=== PATIENT | female | born 1955 | race Caucasian/White ===

== ENCOUNTER 2016-10-14 14:05 | Emergency (ER) | payer BC ==
[~2016-10-14] VITALS: Ht 167.6 cm; Wt 74.9 kg
[~2016-10-14 14:05] MED LIST: CELEXA20 MG PO; CIPRO500 MG PO; MECLIZINE HCL25 MG PO; PANTOPRAZOLE SO40 MG PO; PYRIDIUM100 MG PO; TYLENOL REGULA325 MG PO
[2016-10-14] MEDS ORDERED: PERCOCET 5/31 TABLET PO (16:21)
[2016-10-14] MEDS ORDERED: MOTRIN800 MG PO (16:25)
[2016-10-14 16:47] VITALS: BP 129/78
== END 2016-10-14 16:48 | disposition home or self-care (01) ==
LOC: EME 14:05
PROC: 2W39X1Z Immobilization of Left Upper Extremity using Splint (ICD-10-PCS; principal; 2016-10-14)
DX: S52.022A Displaced fracture of olecranon process without intraarticular extension of left ulna, initial encounter for closed fracture (principal); W10.8XXA Fall (on) (from) other stairs and steps, initial encounter; Y92.008 Other place in unspecified non-institutional (private) residence as the place of occurrence of the external cause; E78.5 Hyperlipidemia, unspecified; K21.9 Gastro-esophageal reflux disease without esophagitis
CPT/HCPCS: 73060; 73080; 99281; 99285; J2270

== ENCOUNTER 2018-01-11 04:27 | Emergency (ER) | payer BC ==
[~2018-01-11] VITALS: Ht 167.6 cm; Wt 75.0 kg
[~2018-01-11 04:27] MED LIST changes: +MOTRIN800 MG PO; +PERCOCET 5/31 TABLET PO
[2018-01-11] MEDS ORDERED: PROAIR HFA8.5 GM IH (06:11)
[2018-01-11] MEDS ORDERED: PREDNISONE20 MG PO (06:11)
[2018-01-11 06:19] VITALS: BP 138/84
== END 2018-01-11 06:18 | disposition home or self-care (01) ==
LOC: EME → EDBD 04:27 → EME 06:18
PROVIDERS: Emergency Medicine
DX: J06.9 Acute upper respiratory infection, unspecified (principal); J40 Bronchitis, not specified as acute or chronic; J02.9 Acute pharyngitis, unspecified; B34.9 Viral infection, unspecified; H92.03 Otalgia, bilateral; R11.2 Nausea with vomiting, unspecified; R19.7 Diarrhea, unspecified; Z88.2 Allergy status to sulfonamides
CPT/HCPCS: 71046; 87502; 94640; 99281; 99282; J1100